=== PATIENT | male | born 1970 | race Native Hawaiian/Other Pacific Islander ===

== ENCOUNTER 2018-04-13 11:50 | Emergency (ER) | payer BC ==
[~2018-04-13] VITALS: Ht 182.9 cm; Wt 104.3 kg
[2018-04-13 11:50] VITALS: TEMP 98.1
[2018-04-13 12:08] LABS: PLATELET COUNT 328 K/uL (142-355)
[2018-04-13 12:39] LABS: POTASSIUM 1.8 mmol/L (3.6-5.2)
[2018-04-13 18:06] LABS: POTASSIUM 2.2 mmol/L (3.6-5.2)
[2018-04-13 19:24] VITALS: BP 143/87
== END 2018-04-13 19:41 | disposition short-term general hospital (02) ==
LOC: ED 11:50
PROVIDERS: Emergency Medicine
DX: E87.8 Other disorders of electrolyte and fluid balance, not elsewhere classified (principal); E87.1 Hypo-osmolality and hyponatremia; E87.6 Hypokalemia; I44.7 Left bundle-branch block, unspecified
CPT/HCPCS: 36415; 80048; 80053; 81000; 83735; 84132; 84443; 85027; 87502; 87651; 93005; 96361; 96365; 96375; 99284; J2405

== ENCOUNTER 2018-04-13 19:46 | Outpatient (CLI) | payer BC | END 2018-04-13 21:08 | disposition short-term general hospital (02) | LOC: AMB 19:46 | DX: E87.8 Other disorders of electrolyte and fluid balance, not elsewhere classified (principal); E87.1 Hypo-osmolality and hyponatremia; E87.6 Hypokalemia; I44.7 Left bundle-branch block, unspecified | CPT/HCPCS: A0425; A0427 ==

== ENCOUNTER 2018-05-12 07:50 | Outpatient (CLI) | payer BC | END 2018-05-12 21:40 | disposition home or self-care (01) | LOC: LABW 07:50 | DX: E87.6 Hypokalemia (principal) | CPT/HCPCS: 36415; 84132 ==

== ENCOUNTER 2021-02-01 07:00 | Emergency (ER) | payer OTHER ==
[~2021-02-01] VITALS: Ht 175.3 cm; Wt 95.3 kg
[2021-02-01 07:15] LABS: PLATELET COUNT 49 K/uL (142-355)
[2021-02-01 07:29] LABS: PARTIAL THROMBOPLASTIN TIME 37.4 SECONDS (24.5-33.6)
[2021-02-01] MEDS ORDERED: ESCITALOPRAM10 MG PO (09:41)
[2021-02-01] MEDS ORDERED: PRAMIPEXOLE0.125 MG PO (09:41)
[2021-02-01 12:04] VITALS: BP 113/53; TEMP 99.3
== END 2021-02-01 12:04 | disposition still patient (30) ==
LOC: EDBD 07:04 → ED 07:04
PROVIDERS: Hospitalist
PROC: 0T9B70Z Drainage of Bladder with Drainage Device, Via Natural or Artificial Opening (ICD-10-PCS; principal; 2021-02-01)
DX: G45.8 Other transient cerebral ischemic attacks and related syndromes (principal); R41.82 Altered mental status, unspecified; F10.129 Alcohol abuse with intoxication, unspecified; Y90.5 Blood alcohol level of 100-119 mg/100 ml; R04.2 Hemoptysis; E87.1 Hypo-osmolality and hyponatremia; K92.2 Gastrointestinal hemorrhage, unspecified; R00.0 Tachycardia, unspecified; K74.69 Other cirrhosis of liver; R94.5 Abnormal results of liver function studies; M62.82 Rhabdomyolysis; R79.89 Other specified abnormal findings of blood chemistry; E86.0 Dehydration; Z11.52 Encounter for screening for COVID-19; W18.39XA Other fall on same level, initial encounter; Y92.098 Other place in other non-institutional residence as the place of occurrence of the external cause
CPT/HCPCS: 36415; 51702; 80053; 80307; 80320; 81000; 82150; 82272; 82550; 83690; 83880; 84484; 85007; 85027; 85379; 85610; 85730; 87635; 93005; 96360; 96365; 96375; 96376; 99284; J2060; J2405; J3411; J3475; J3490; U0003